=== PATIENT | male | born 1925 | race Caucasian/White ===

== ENCOUNTER 2017-01-10 10:53 | Emergency (ER) | payer MEDICARE, MEDICAID ==
[~2017-01-10] VITALS: Ht 152.4 cm; Wt 70.3 kg
[~2017-01-10 10:53] MED LIST: BENACAR
[2017-01-10 10:54] VITALS: Ht 152.4 cm; Wt 70.3 kg
[2017-01-10] MEDS ORDERED: ATOR10TA65 PO (12:25)
[2017-01-10] MEDS ORDERED: CARV6.2579 PO (12:25)
[2017-01-10] MEDS ORDERED: LISI10TA2 PO (12:25)
[2017-01-10] MEDS ORDERED: ONDANSETRON 4 MG INJ IV STA (12:26)
[2017-01-10] MEDS ORDERED: MULTI PO (12:26)
[2017-01-10] MEDS ORDERED: morphine 4 MG/ML VIAL IV STA (12:26)
[2017-01-10 12:41] LABS: ADD SCAN DIFF NO
[2017-01-10 12:44] LABS: BASOPHIL # 0.1 10^3/ul (0.0-0.1); BASOPHILS % 0.8 % (0.0-2.0); EOSINOPHILS # 0.4 10^3/ul (0.0-0.5); EOSINOPHILS % 5.7 % (0.0-7.0); HEMATOCRIT 51.4 % (42.0-52.0); HEMOGLOBIN 16.7 g/dl (14.0-18.0); LYMPHOCYTES # 1.7 10^3/ul (0.8-2.9); LYMPHOCYTES % 23.3 % (15.0-51.0); MEAN CORPUSCULAR HEMOGLOBIN 29.8 pg (29.0-33.0); MEAN CORPUSCULAR HGB CONC 32.5 g/dl (32.0-37.0); MEAN CORPUSCULAR VOLUME 91.6 fl (82.0-101.0); MEAN PLATELET VOLUME 10.3 fl (7.4-10.4); MONOCYTE # 0.6 10^3/ul (0.3-0.9); MONOCYTES % 8.5 % (0.0-11.0); NEUTROPHIL # 4.3 10^3/ul (1.6-7.5); NEUTROPHILS % 61.4 % (39.0-77.0); PLATELET COUNT 138 10^3/UL (140-415); RED BLOOD COUNT 5.61 10^6/ul (4.70-6.10); RED CELL DISTRIBUTION WIDTH 13.1 % (11.5-14.5); WHITE BLOOD COUNT 7.1 10^3/ul (4.8-10.8)
[2017-01-10 12:51] LABS: ALBUMIN 4.2 g/dl (3.3-4.9)
[2017-01-10 12:52] LABS: POTASSIUM 5.2 mmol/L (3.5-5.1)
[2017-01-10 12:54] LABS: ALBUMIN/GLOBULIN RATIO 1.16; BILIRUBIN,INDIRECT 0.7 mg/dl (0-1.1); BILIRUBIN,TOTAL 0.7 mg/dl (0.2-1.3); CREATININE 1.12 mg/dl (0.61-1.24); TOTAL PROTEIN 7.8 g/dl (6.1-8.1)
[2017-01-10 12:55] LABS: CALCIUM 9.8 mg/dl (8.4-10.2)
[2017-01-10 13:09] LABS: ADD UMIC YES; URINE BILIRUBIN (Dip) NEGATIVE (NEGATIVE); URINE BLOOD (Dip) 1+ (NEGATIVE); URINE COLOR LT. YELLOW (YELLOW); URINE GLUCOSE (Dip) NEGATIVE (NEGATIVE); URINE KETONES (Dip) NEGATIVE (NEGATIVE); URINE LEUKOCYTE ESTERASE (Dip) TRACE (NEGATIVE); URINE NITRITE (Dip) NEGATIVE (NEGATIVE); URINE TOTAL PROTEIN (Dip) 1+ (NEGATIVE); URINE UROBILINOGEN (Dip) 0.2 E.U./dL (0.1-1.0)
[2017-01-10 13:29] LABS: BACTERIA,URINE FEW; URINE RBCS 0-2 /HPF (0)
--- NOTE | 2017-01-10 13:50 | RADRPT ---
PROCEDURE: CT Abdomen and Pelvis without contrast. CLINICAL INDICATION: Abdominal pain. TECHNIQUE: Routine abdominopelvic CT was performed without intravenous contrast. Radiation dose: CTDIvol = 6.7 mGy; total DLP = 375 mGy-cm. One or more of the following dose reduction techniques were used: - Automated exposure control. - Adjustment of the mA and/or kV according to patient size. - Use of iterative reconstruction technique. COMPARISON: None. FINDINGS: There is asymmetric enlargement of the left lateral lobe of the liver with fissural widening; dysmor phic changes suggestive of possible underlying diffuse liver disease. The gallbladder is surgically absent without significant biliary dilatation. Pancreas, adrenal glan ds, and spleen are grossly unremarkable by unenhanced CT. No abnormal bowel wall thickening or dilatation. Appendix is within normal limits. There are low density lesions identified in the bilateral kidneys that are likely cysts. No hydrone phrosis or nephrolithiasis. Marked enlargement of the prostate gland measuring 5.5 cm in AP dimension. Small hiatal hernia. IMPRESSION: 1. No abdominopelvic mass, lymphadenopathy, or focal acute inflammatory process. No identifiable c ause of patient's abdominal pain. 2. Incidental findings are delineated above. RPTAT: [facility] .Minor Garcia MD, Date Time Electronically viewed and signed by .Minor Garcia MD, on 01/10/2017 13:50 .C/
[2017-01-10 13:55] VITALS: BP 141/73; PULSE 141; RESP 16; TEMP 98.1
[2017-01-10] MEDS ORDERED: TRAM50TA2 PO (14:12)
[2017-01-10] MEDS ORDERED: RANI150T9 PO (14:12)
[2017-01-10] MEDS ORDERED: CIPR500T4 PO (14:12)
--- NOTE | 2017-01-10 14:15 | ERD ---
ER Documentation Chief Complaint Date/Time DATE: 01/10/17 TIME: 14:13 Chief Complaint pt bib family with c/o left sided abd pain for a few days HPI This is an 89-year-old male complains of left upper quadrant pain/left mid abdominal pain for the past 3 days. Pain is described as dull and intermittent is somewhat worse after meals. No nausea no vomiting no diarrhea no fever no back pain no radiation of pain. The patient has not had these symptoms before. No dysuria hematuria ROS All systems reviewed and are negative except as per history of present illness. Medications Home Meds Active Scripts Tramadol HCl (Tramadol HCl) 50 Mg Tablet, 50 MG PO Q6, #20 TAB Prov:DOROTA LOREDO DO 01/10/17 Ranitidine Hcl* (Zantac*) 150 Mg Tablet, 150 MG PO BID Y for EPIGASTRIC PAIN, # 30 TAB Prov:DOROTA LOREDO DO 01/10/17 Ciprofloxacin Hcl* (Ciprofloxacin Hcl*) 500 Mg Tablet, 500 MG PO BID for 7 Days , TAB Prov:DOROTA LOREDO DO 01/10/17 Reported Medications Multivitamins* (Theragran*) 1 Tab Tab, 1 TAB PO DAILY, TAB 01/10/17 Atorvastatin Calcium (Atorvastatin Calcium) 10 Mg Tablet, 10 MG PO QHS, #30 TAB 01/10/17 Lisinopril* (Lisinopril*) 10 Mg Tablet, 10 MG PO DAILY, #30 TAB 01/10/17 Carvedilol* (Carvedilol*) 6.25 Mg Tablet, 6.25 MG PO BID, #60 TAB 01/10/17 Discontinued Reported Medications [Benacar] No Conflict Check 04/26/10 Allergies Allergies: Coded Allergies: No Known Allergies (Verified Allergy, Mild, 01/10/17) PMhx/Soc History of Surgery: Yes (GALLBLADDER REMOVAL INGUINAL HERNIA) Anesthesia Reaction: No Hx Neurological Disorder: No Hx Respiratory Disorders: No Hx Cardiac Disorders: Yes (HTN, 2 stents 2012) Hx Psychiatric Problems: No Hx Miscellaneous Medical Probl: No Hx Alcohol Use: No Hx Substance Use: No Hx Tobacco Use: No Smoking Status: Never smoker FmHx Family History: No coronary disease Physical Exam Vitals Vital Signs Date Time Temp Pulse Resp B/P Pulse Ox O2 Delivery O2 Flow Rate FiO2 01/10/17 13:55 98.1 141 16 141/73 100 Room Air 01/10/17 10:54 97.1 73 20 171/74 97 Physical Exam Const: [] Head: Atraumatic Eyes: Normal Conjunctiva ENT: Normal External Ears, Nose and Mouth. Neck: Full range of motion..~ No meningismus. Resp: Clear to auscultation bilaterally Cardio: Regular rate and rhythm, no murmurs Abd: Soft, non tender, non distended. Normal bowel sounds Skin: No petechiae or rashes Back: No midline or flank tenderness Ext: No cyanosis, or edema Neur: Awake and alert Psych: Normal Mood and Affect Result Diagram: 01/10/17 1240 01/10/17 1240 Results 24 hrs Laboratory Tests Test 01/10/17 12:35 01/10/17 12:40 Urine Bacteria FEW Urine Bilirubin NEGATIVE Urine Clarity CLEAR Urine Color LT. YELLOW Urine Glucose NEGATIVE% Urine Hemoglobin 1+ Urine Ketones NEGATIVE Urine Leukocyte Esterase TRACE Urine Microscopic RBC 0-2/HPF Urine Microscopic WBC 5-10/HPF Urine Nitrite NEGATIVE Urine Specific [place] 1.025 Urine Total Protein 1+ Urine Urobilinogen 0.2 E.U./dL Urine pH 5.5 Alanine Aminotransferase (ALT/SGPT) 28IU/L Albumin 4.2g/dl Albumin/Globulin Ratio 1.16 Alkaline Phosphatase 91IU/L Anion Gap 15 Aspartate Amino Transf (AST/SGOT) 35IU/L Basophils # 0.110^3/ul Basophils % 0.8% Blood Urea Nitrogen 26mg/dl Calcium Level 9.8mg/dl Carbon Dioxide Level 32mmol/L Chloride Level 103mmol/L Creatinine 1.12mg/dl Direct Bilirubin 0.00mg/dl Eosinophils # 0.410^3/ul Eosinophils % 5.7% Globulin 3.60g/dl Glucose Level 119mg/dl Hematocrit 51.4% Hemoglobin 16.7g/dl Indirect Bilirubin 0.7mg/dl Lymphocytes # 1.710^3/ul Lymphocytes % 23.3% Mean Corpuscular Hemoglobin 29.8pg Mean Corpuscular Hemoglobin Concent 32.5g/dl Mean Corpuscular Volume 91.6fl Mean Platelet Volume 10.3fl Monocytes # 0.610^3/ul Monocytes % 8.5% Neutrophils # 4.310^3/ul Neutrophils % 61.4% Nucleated Red Blood Cells # 0.010^3/ul Nucleated Red Blood Cells % 0.0/100WBC Platelet Count 32531^3/UL Potassium Level 5.2mmol/L Red Blood Count 5.6110^6/ul Red Cell Distribution Width 13.1% Sodium Level 145mmol/L Total Bilirubin 0.7mg/dl Total Protein 7.8g/dl White Blood Count 7.110^3/ul Current Medications Medications (Trade) Dose Ordered Sig/Nicole Route PRN Reason Start Time Stop Time Status Last Admin Dose Admin Morphine Sulfate (morphine) 4 mg ONCE STAT IV 01/10/17 12:26 01/10/17 12:27 DC 01/10/17 12:50 Ondansetron HCl (Zofran Inj) 4 mg ONCE STAT IV 01/10/17 12:26 01/10/17 12:27 DC 01/10/17 12:50 Procedures/MDM PROCEDURE: CT Abdomen and Pelvis without contrast. CLINICAL INDICATION: Abdominal pain. TECHNIQUE: Routine abdominopelvic CT was performed without intravenous contrast. Radiation dose: CTDIvol = 6.7 mGy; total DLP = 375 mGy-cm. One or more of the following dose reduction techniques were used: - Automated exposure control. - Adjustment of the mA and/or kV according to patient size. - Use of iterative reconstruction technique. COMPARISON: None. FINDINGS: There is asymmetric enlargement of the left lateral lobe of the liver with fissural widening; dysmorphic changes suggestive of possible underlying diffuse liver disease. The gallbladder is surgically absent without significant biliary dilatation. Pancreas, adrenal glands, and spleen are grossly unremarkable by unenhanced CT. No abnormal bowel wall thickening or dilatation. Appendix is within normal limits. There are low density lesions identified in the bilateral kidneys that are likely cysts. No hydronephrosis or nephrolithiasis. Marked enlargement of the prostate gland measuring 5.5 cm in AP dimension. Small hiatal hernia. IMPRESSION: 1. No abdominopelvic mass, lymphadenopathy, or focal acute inflammatory process. No identifiable cause of patient's abdominal pain. 2. Incidental findings are delineated above. RPTAT: [facility] .Minor Garcia MD, MD Date Time Electronically viewed and signed by .Minor Garcia MD, MD on 01/10/2017 13:50 .C/ CC: DOROTA LOREDO DO Patient's pain could be due to gastritis/peptic ulcer disease. No evidence of any pathology on CT scan. We will treat with Cipro for the UTI and Zantac Departure Diagnosis: Primary Impression: UTI (urinary tract infection) Urinary tract infection type: acute cystitis Hematuria presence: without hematuria Qualified Code: N30.00 - Acute cystitis without hematuria Additional Impression: Abdominal pain Abdominal location: left upper quadrant Qualified Code: R10.12 - Left upper quadrant pain Condition: Stable Patient Instructions: Abdominal Pain, Urinary Tract Infections in Men DOROTA LOREDO DO Jan 10, 2017 14:15
== END 2017-01-10 14:23 | disposition home or self-care (01) ==
LOC: E/R 10:53
DX: N30.00 Acute cystitis without hematuria (principal); I10 Essential (primary) hypertension; Z98.61 Coronary angioplasty status
CPT/HCPCS: 36415; 74176; 80053; 81001; 85025; 96374; 96375; 99285; J2270; J2405; 81003

== ENCOUNTER 2017-04-05 10:49 | Emergency (ER) | payer MEDICARE, OTHER ==
[~2017-04-05] VITALS: Wt 68.5 kg
[~2017-04-05 10:49] MED LIST changes: +ATOR10TA65 PO; -BENACAR; +CARV6.2579 PO; +CIPR500T4 PO; +LISI10TA2 PO; +MULTI PO; +RANI150T9 PO; +TRAM50TA2 PO
[2017-04-05] MEDS ORDERED: SOD CHLORIDE 0.9% 500 ML IV STA (12:03)
[2017-04-05 12:50] LABS: ADD SCAN DIFF NO
[2017-04-05 12:54] LABS: BASOPHILS % 0.6 % (0.0-2.0); EOSINOPHILS # 0.4 10^3/ul (0.0-0.5); HEMATOCRIT 50.5 % (42.0-52.0); HEMOGLOBIN 16.7 g/dl (14.0-18.0); LYMPHOCYTES # 1.8 10^3/ul (0.8-2.9); LYMPHOCYTES % 26.3 % (15.0-51.0); MEAN CORPUSCULAR HEMOGLOBIN 29.9 pg (29.0-33.0); MEAN CORPUSCULAR HGB CONC 33.1 g/dl (32.0-37.0); MEAN CORPUSCULAR VOLUME 90.5 fl (82.0-101.0); MEAN PLATELET VOLUME 10.6 fl (7.4-10.4); MONOCYTE # 0.7 10^3/ul (0.3-0.9); MONOCYTES % 9.4 % (0.0-11.0); NEUTROPHILS % 57.4 % (39.0-77.0); PLATELET COUNT 146 10^3/UL (140-415); RED BLOOD COUNT 5.58 10^6/ul (4.70-6.10); RED CELL DISTRIBUTION WIDTH 13.4 % (11.5-14.5); WHITE BLOOD COUNT 6.9 10^3/ul (4.8-10.8)
[2017-04-05 12:57] LABS: ADD UMIC YES; URINE BILIRUBIN (Dip) NEGATIVE (NEGATIVE); URINE BLOOD (Dip) 3+ (NEGATIVE); URINE COLOR LT. YELLOW (YELLOW); URINE GLUCOSE (Dip) NEGATIVE (NEGATIVE); URINE KETONES (Dip) NEGATIVE (NEGATIVE); URINE LEUKOCYTE ESTERASE (Dip) NEGATIVE (NEGATIVE); URINE NITRITE (Dip) NEGATIVE (NEGATIVE); URINE TOTAL PROTEIN (Dip) 2+ (NEGATIVE); URINE UROBILINOGEN (Dip) 0.2 E.U./dL (0.1-1.0)
[2017-04-05] MEDS ORDERED: NAPR-688 PO (13:25)
[2017-04-05 13:49] LABS: INR 1.03; PROTIME 13.5 Sec (12.2-14.2); PT RATIO 1.1
[2017-04-05 13:53] LABS: ALBUMIN 3.7 g/dl (3.3-4.9)
[2017-04-05 13:54] LABS: POTASSIUM 4.2 mmol/L (3.5-5.1)
[2017-04-05] MEDS ORDERED: CIPR500T4 PO (13:55)
[2017-04-05 13:56] LABS: BILIRUBIN,INDIRECT 0.7 mg/dl (0-1.1); BILIRUBIN,TOTAL 0.7 mg/dl (0.2-1.3); CREATININE 1.08 mg/dl (0.61-1.24); TOTAL PROTEIN 7.4 g/dl (6.1-8.1)
[2017-04-05 13:57] LABS: CALCIUM 9.3 mg/dl (8.4-10.2)
--- NOTE | 2017-04-05 13:58 | ERD ---
ER Documentation Chief Complaint Date/Time DATE: 04/05/17 TIME: 13:57 Chief Complaint hematuria x 3 days HPI 89-year-old man brought in by with complaints of hematuria 3 days although they state today the bleeding has improved. He has had no fevers or chills, no abdominal pain or back pain, no weight loss, no blood per rectum or melena, no complaints of chest pain or shortness of breath. Patient does have a long history of BPH and has a follow-up appointment scheduled with his PMD later this week. ROS All systems reviewed and are negative except as per history of present illness. Medications Home Meds Active Scripts Ciprofloxacin Hcl* (Ciprofloxacin Hcl*) 500 Mg Tablet, 500 MG PO BID for 4 Days , TAB Prov:OFELIA HYMAN MD 04/05/17 Tramadol HCl (Tramadol HCl) 50 Mg Tablet, 50 MG PO Q6, #20 TAB Prov:DOROTA LOREDO DO 01/10/17 Ranitidine Hcl* (Zantac*) 150 Mg Tablet, 150 MG PO BID Y for EPIGASTRIC PAIN, # 30 TAB Prov:DOROTA LOREDO DO 01/10/17 Ciprofloxacin Hcl* (Ciprofloxacin Hcl*) 500 Mg Tablet, 500 MG PO BID for 7 Days , TAB Prov:DOROTA LOREDO DO 01/10/17 Reported Medications Naproxen* (Naproxen*) 500 Mg Tablet, 500 MG PO BID Y for PAIN LEVEL 6-10, TAB 04/05/17 Multivitamins* (Theragran*) 1 Tab Tab, 1 TAB PO DAILY, TAB 01/10/17 Atorvastatin Calcium (Atorvastatin Calcium) 10 Mg Tablet, 10 MG PO QHS, #30 TAB 01/10/17 Lisinopril* (Lisinopril*) 10 Mg Tablet, 10 MG PO DAILY, #30 TAB 01/10/17 Carvedilol* (Carvedilol*) 6.25 Mg Tablet, 6.25 MG PO BID, #60 TAB 01/10/17 Allergies Allergies: Coded Allergies: No Known Allergies (Verified Allergy, Mild, 01/10/17) PMhx/Soc BPH, hypertension, hypercholesterolemia, cholecystectomy History of Surgery: Yes (GALLBLADDER REMOVAL INGUINAL HERNIA) Anesthesia Reaction: No Hx Neurological Disorder: No Hx Respiratory Disorders: No Hx Cardiac Disorders: Yes (HTN, 2 stents 2013) Hx Psychiatric Problems: No Hx Miscellaneous Medical Probl: No Hx Alcohol Use: No Hx Substance Use: No Hx Tobacco Use: No Smoking Status: Never smoker FmHx Family History: No diabetes Physical Exam Vitals Vital Signs Date Time Temp Pulse Resp B/P Pulse Ox O2 Delivery O2 Flow Rate FiO2 04/05/17 14:04 82 17 146/78 99 Room Air 04/05/17 10:54 98.2 69 20 161/79 99 Physical Exam GENERAL: Well-developed, well-nourished, well-hydrated, in no apparent distress , looks nontoxic in appearance HEENT: Moist mucous membranes, pink conjunctiva, no cervical spine tenderness or step-off deformities, no goiter, no jaundice or icterus, extraocular movements intact without pain. No submandibular induration, and no pharyngeal erythema NEURO: Alert and oriented 3, cranial nerves II through XII intact bilaterally, pupils equal round reactive to light, no focal deficits or facial asymmetry, sensation intact distally Strength 5/5 in upper and lower extremities bilaterally CARDIAC: Regular rate and rhythm, no murmurs rubs or gallops LUNGS: Clear bilaterally no wheezing crackles or stridor ABDOMEN: Soft nontender, no guarding, no rigidity, no rebound, no psoas sign no obturator sign. Normoactive bowel sounds SKIN: Warm and dry to touch, no abrasions, contusions, or hematomas, no lacerations, no ecchymosis, no target lesions, and without ulcers EXTREMITIES: No clubbing cyanosis or edema, calves are bilaterally symmetrical, no Homans sign, no popliteal cord sign. Distal pulses equal and bilateral PSYCH: Normal affect without agitation or irritability Result Diagram: 04/05/17 1330 04/05/17 1330 Results 24 hrs Laboratory Tests Test 04/05/17 12:15 04/05/17 13:30 Urine Color LT. YELLOW Urine Clarity SLIGHTLY CLOUDY Urine pH 5.5 Urine Specific [place] 1.020 Urine Ketones NEGATIVE Urine Nitrite NEGATIVE Urine Bilirubin NEGATIVE Urine Urobilinogen 0.2 E.U./dL Urine Leukocyte Esterase NEGATIVE Urine Microscopic RBC 10-25/HPF Urine Microscopic WBC NONE SEEN/HPF Urine Hemoglobin 3+ Urine Glucose NEGATIVE% Urine Total Protein 2+ White Blood Count 6.910^3/ul Red Blood Count 5.5810^6/ul Hemoglobin 16.7g/dl Hematocrit 50.5% Mean Corpuscular Volume 90.5fl Mean Corpuscular Hemoglobin 29.9pg Mean Corpuscular Hemoglobin Concent 33.1g/dl Red Cell Distribution Width 13.4% Platelet Count 76641^3/UL Mean Platelet Volume 10.6fl Neutrophils % 57.4% Lymphocytes % 26.3% Monocytes % 9.4% Eosinophils % 6.0% Basophils % 0.6% Nucleated Red Blood Cells % 0.0/100WBC Neutrophils # 4.010^3/ul Lymphocytes # 1.810^3/ul Monocytes # 0.710^3/ul Eosinophils # 0.410^3/ul Basophils # 0.010^3/ul Nucleated Red Blood Cells # 0.010^3/ul Prothrombin Time 13.5Sec Prothrombin Time Ratio 1.1 INR International Normalized Ratio 1.03 Sodium Level 141mmol/L Potassium Level 4.2mmol/L Chloride Level 104mmol/L Carbon Dioxide Level 26mmol/L Anion Gap 15 Blood Urea Nitrogen 26mg/dl Creatinine 1.08mg/dl Glucose Level 112mg/dl Calcium Level 9.3mg/dl Total Bilirubin 0.7mg/dl Direct Bilirubin 0.00mg/dl Indirect Bilirubin 0.7mg/dl Aspartate Amino Transf (AST/SGOT) 30IU/L Alanine Aminotransferase (ALT/SGPT) 31IU/L Alkaline Phosphatase 67IU/L Total Protein 7.4g/dl Albumin 3.7g/dl Globulin 3.70g/dl Albumin/Globulin Ratio 1.00 Lipase 167U/L Current Medications Medications (Trade) Dose Ordered Sig/Nicole Route PRN Reason Start Time Stop Time Status Last Admin Dose Admin Sodium Chloride (NS) 500 ml @ 500 mls/hr Q1H STAT IV 04/05/17 12:03 04/05/17 13:02 DC 04/05/17 12:43 Ciprofloxacin (Cipro) 500 mg ONCE ONCE PO 04/05/17 14:00 04/05/17 14:01 DC 04/05/17 14:00 Procedures/MDM IV line was established patient was placed on pipe fitter marine rhythm strip revealed a sinus rhythm at about 80 bpm with upright P and T waves. Patient was afebrile. Urine cultures have been ordered results are pending I will follow-up. CBC was unremarkable, electrolytes revealed dehydration with a BUN/creatinine of 26/1, liver function tests were normal, coagulation profile was normal. Urine analysis revealed blood. I treated him here with ciprofloxacin 500 mg p.o. and also recommended a total of 5 days therapy. I informed him and his who was at the bedside that there are multiple differentials for hematuria and recommended follow-up with PMD and repeat UA after antibiotics are complete , he may require a appointment if bleeding continues although they state has improved today. Differential diagnoses considered, included but not limited to prostate cancer, metastatic disease, BPH, aortic dissection, abdominal aortic aneurysm, sepsis, stroke, meningitis, encephalitis, pneumonia, appendicitis, cholecystitis, bowel obstruction, pyelonephritis, nephrolithiasis, cystitis, as well as metabolic, hematologic, and electrolyte abnormalities. As well as abscess, cellulitis, fractures, and dislocations. Patient feels much better at this time, and vital signs are normal, symptoms have improved. I did give strict instructions to return to the ED if symptoms continue or worsen, patient will otherwise follow-up with primary care physician. Patient understood instructions and agreed to plan. Disclaimer: Inadvertent spelling or grammatical errors are likely due to EHR/ dictation software use and do not reflect on the overall quality of patient care. Departure Diagnosis: Primary Impression: Hematuria Additional Impression: Dehydration Condition: Good Patient Instructions: Bph (Enlarged Prostate), Hematuria Referrals: INGRID ANN MD (PCP) OFELIA HYMAN MD April 05, 2017 13:58
[2017-04-05] MEDS ORDERED: CIPROFLOXACIN 500 MG TAB PO ONE (14:00)
[2017-04-05 14:04] VITALS: BP 146/78; PULSE 82; RESP 17
== END 2017-04-05 14:05 | disposition home or self-care (01) ==
LOC: E/R 10:49
DX: R31.9 Hematuria, unspecified (principal); E86.0 Dehydration; I10 Essential (primary) hypertension; Z98.61 Coronary angioplasty status
CPT/HCPCS: 36415; 80053; 81001; 83690; 85025; 85610; 87086; 99284; J7040; 81003